=== PATIENT | male | born 1940 | race Caucasian/White ===

== ENCOUNTER 2023-04-23 19:15 | Emergency (ER) | payer SELFPAY ==
[2023-04-23 19:42] VITALS: BP 160/90; PULSE 87; RESP 15; TEMP 36.2; O2SAT 99
[2023-04-23 19:54] LABS: Glucose Point of Care 87 mg/dl (65-105)
--- NOTE | 2023-04-23 20:09 | PC.NURSE ---
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 Pt encouraged to stay and be seen by a physician by this RN. Pt stated he is going too see his PCP tomorrow. Pt ambulated out of ED.
== END 2023-04-23 23:06 | disposition left against medical advice (07) ==
DX: E11.649 Type 2 diabetes mellitus with hypoglycemia without coma (principal)
CPT/HCPCS: 82948; 99199